=== PATIENT | male | born 1965 | race Caucasian/White ===

== ENCOUNTER → 2016-09-28 | Outpatient (CLI) | payer BC, OTHER ==
[~2016-09-28] MED LIST: ATOR10TA PO; ESCT10T; HYOMAX; HYOS0.1217; OMEP-10; [UNRECOGNIZED DRUG - CODE]
--- NOTE | 2016-09-28 14:36 | Diagnostic Imaging Report ---
PROCEDURE: MRI left upper extremity without contrast. TECHNIQUE: Multiplanar, multisequence non contrast-enhanced MRI of the left upper extremity was accomplished. INDICATION: Chronic left shoulder pain with popping. FINDINGS: The humeral head is in normal alignment with the glenoid fossa. Articulating surfaces are smooth. The articulating cartilage appears intact. Rotator cuff shows thickening of the distal supraspinatus tendon consistent with chronic tendinopathy. No evidence of full-thickness tears. The infraspinatus and subscapularis are intact with some thickening of the subscapularis tendon as well. The long head of biceps is in the bicipital groove and extends to the labral anchor. There is increased signal along the base of the anterior superior labrum which would be consistent with anterior labral tear. The AC joint shows marked hypertrophy. Osteophyte present both along the superior and undersurface. No loose bodies are identified. No joint effusion. The surrounding muscles appear normal with good bulk. IMPRESSION: 1. Thickening of the supraspinatus tendon and the subscapularis tendon consistent with chronic tendinopathy. No full-thickness tear demonstrated. 2. Probable tear along the anterior superior labrum though lack of intra-synovial contrast limits sensitivity. Clinical correlation. 3. Rather marked hypertrophic changes of the AC. joint. Dictated by: Dictated on workstation # [id number]
== END ==
LOC: RAD 12:57
PROVIDERS: ATTEND Orthopaedic Surgery
DX: R93.7 Abnormal findings on diagnostic imaging of other parts of musculoskeletal system (principal); M25.512 Pain in left shoulder; M47.812 Spondylosis without myelopathy or radiculopathy, cervical region
CPT/HCPCS: 73221

== ENCOUNTER 2016-11-19 15:33 | Outpatient (RCR) | payer OTHER | END 2016-12-03 16:38 | disposition home or self-care (01) | PROVIDERS: ATTEND Nurse Practitioner Family | DX: M75.42 Impingement syndrome of left shoulder (principal); M75.22 Bicipital tendinitis, left shoulder; M75.82 Other shoulder lesions, left shoulder; M50.30 Other cervical disc degeneration, unspecified cervical region ==

== ENCOUNTER 2017-07-31 17:01 | Emergency (ER) | payer OTHER ==
[~2017-07-31] VITALS: Ht 182.9 cm; Wt 72.6 kg
[2017-07-31] MEDS ORDERED: AMOX-358 PO (17:29)
[2017-07-31] MEDS ORDERED: HYDR-757 PO (17:29)
[2017-07-31] MEDS ORDERED: RX-HYDROCODONE/APAP 5/325 MG #4 TAB PK PO PRN (17:30)
[2017-07-31] MEDS ORDERED: AUGMENTIN 875 MG TAB (AMOXICILLIN/CLAVULANATE) PO SCH (17:30)
[2017-07-31] MEDS ORDERED: BUPIVACAINE 0.5% 30 ML (SENSORCAINE) VIAL INJ ONE (17:30)
--- NOTE | 2017-07-31 17:31 | ED EENT ---
History of Present Illness General Chief Complaint: Dental Problems/Pain Stated Complaint: DENTAL PAIN Nursing Triage Note: c/o R lower dental pain Source: patient Exam Limitations: no limitations History of Present Illness Date Seen by Provider: July 31, 2017 Time Seen by Provider: 17:26 Initial Comments To ER with right lower dental pain that began last night. He believes this is originating from a tooth that has a crown on it. No swelling. No fevers or chills. Timing/Duration: abrupt Severity: moderate Location: dental Associated Symptoms: denies symptoms Allergies and Home Medications Allergies Coded Allergies: Sulfa (Sulfonamide Antibiotics) (Verified Allergy, Unknown, 12/16/07) Home Medications Amoxicillin/Potassium Clav 1 Each Tablet, 1 EACH PO BID Prescribed by: GABRIELA GARCIA on 07/31/171728 Atorvastatin Calcium 10 Mg Tablet, 10 MG PO DAILY, (Reported) Hydrocodone/Acetaminophen 1 Each Tablet, 1 EACH PO Q4H PRN for PAIN-SEVERE Prescribed by: GABRIELA GARCIA on 07/31/171728 Patient Home Medication List Home Medication List Reviewed: Yes Review of Systems Constitutional: see HPI Eyes: No Symptoms Reported Ears: No Symptoms Reported Nose: no symptoms reported Mouth: see HPI, pain Throat: no symptoms reported Respiratory: no symptoms reported Cardiovascular: no symptoms reported Musculoskeletal: no symptoms reported Past Iyhybaj-Jdzrsa-Bejfvr Hx Patient Social History Alcohol Use: Occasionally Uses Recreational Drug Use: No Smoking Status: Never a Smoker Recent Foreign Travel: No Contact w/Someone Who Travel: No Recent Infectious Disease Expo: No Recent Hopitalizations: No Physical Abuse: No Sexual Abuse: No Past Medical History Surgeries: Yes (VASECTOMY) Respiratory: No Cardiac: No Neurological: No Reproductive Disorders: No Sexually Transmitted Disease: No Gastrointestinal: Yes Musculoskeletal: No Endocrine: No Psychosocial: No Nursing Suicide Risk Score: 0 Blood Disorders: No Physical Exam Vital Signs Vital Signs - First Documented 07/31/17 17:21 Temp 98.2 Pulse 68 Resp 18 B/P (MAP) 135/86 (102) Pulse Ox 100 General Appearance: WD/WN, no apparent distress Eyes: bilateral eye normal inspection, bilateral eye PERRL, bilateral eye EOMI Ears: bilateral ear auricle normal, bilateral ear canal normal Mouth/Throat: normal mouth inspection, pharynx normal, other (There is no palpable dental abscess) Neck: non-tender, full range of motion; No lymphadenopathy (R), No lymphadenopathy (L) Respiratory: no respiratory distress, no accessory muscle use Gastrointestinal: normal bowel sounds, non tender Neurologic/Psychiatric: alert, normal mood/affect, oriented x 3 Skin: normal color, warm/dry Procedures/Interventions Additional Procedures: Peripheral Nerve Block (Right inferior alveolar using 1 mL of 2% lidocaine with epinephrine and 1 mL of bupivacaine 0.5%) Progress/Results/Core Measures Results/Orders My Orders Orders - GABRIELA GARCIA APRN Bupivacaine 0.5% Injection (Sensorcaine (07/31/17 17:30) Rx-Hydrocodone/Apap 5-325 Mg (Rx-Vicodin (07/31/17 17:30) Amoxicillin/Clavulanate Tablet (Augmenti (07/31/17 17:30) Medications Given in ED Current Medications Medications Dose Ordered Sig/Brook Route Start Time Stop Time Status Last Admin Dose Admin Acetaminophen/ Hydrocodone Bitart 1 ea Q4H PRN PO 07/31/17 17:30 07/31/17 17:28 1 EA Bupivacaine HCl 2 ml ONCE ONCE INJ 07/31/17 17:30 07/31/17 17:31 DC 07/31/17 17:28 2 ML Vital Signs/I&O 07/31/17 17:21 Temp 98.2 Pulse 68 Resp 18 B/P (MAP) 135/86 (102) Pulse Ox 100 Blood Pressure Mean: 102 Departure Communication (Admissions) 1750-Pain is "110% better" Impression Primary Impression: Pain, dental Disposition: 01 HOME, SELF-CARE Condition: Stable Departure-Patient Inst. Decision time for Depature: 17:27 Referrals: MACI THORNTON MD (PCP/Family) Primary Care Physician Patient Instructions: Dental Pain (DC) Add. Discharge Instructions: 1. Pain medication and antibiotics as directed. Follow-up with your dentist as soon as possible. Return to ER for swelling fevers or other concerns. All discharge instructions reviewed with patient and/or family. Voiced understanding. Scripts Hydrocodone/Acetaminophen ([place] 5-325 Tablet) 1 Each Tablet 1 EACH PO Q4H PRN for PAIN-SEVERE, #10 TAB Prov: GABRIELA GARCIA APRN 07/31/17 Amoxicillin/Potassium Clav (Augmentin 875-125 Tablet) 1 Each Tablet 1 EACH PO BID, #14 TAB Prov: GABRIELA GARCIA APRN 07/31/17 GABRIELA GARCIA APRN July 31, 2017 17:31
[2017-07-31 17:52] VITALS: BP 135/86
== END 2017-07-31 17:52 | disposition home or self-care (01) ==
LOC: EDUNIT# 17:01 → ER 17:03
DX: K08.89 Other specified disorders of teeth and supporting structures (principal); Z90.79 Acquired absence of other genital organ(s); Z88.2 Allergy status to sulfonamides
CPT/HCPCS: 99283

== ENCOUNTER 2018-01-30 10:30 | Outpatient (CLI) | payer OTHER ==
[~2018-01-30] VITALS: Ht 182.9 cm; Wt 72.6 kg
[~2018-01-30 10:30] MED LIST changes: +AMOX-358 PO; +HYDR-4226 PO; +OMEP20TA7 PO
== END 2018-01-30 10:45 | disposition home or self-care (01) ==
LOC: PREOP 10:30
PROVIDERS: ATTEND Surgery
DX: Z01.818 Encounter for other preprocedural examination (principal)

== ENCOUNTER 2018-02-01 09:24 | Day surgery (SDC) | payer OTHER ==
[~2018-02-01] VITALS: Ht 182.9 cm; Wt 72.6 kg
[2018-02-01 09:35] VITALS: BP 110/77
[2018-02-01] MEDS ORDERED: MIDAZOLAM 2 MG/2 ML (VERSED) VIAL IVP ONE (09:45)
[2018-02-01] MEDS ORDERED: HURRICAINE EXT TUBE (BENZOCAINE) XX PRN (09:45)
[2018-02-01] MEDS ORDERED: LIDOCAINE JELLY 2% 6 ML SYRINGE MM PRN (09:45)
[2018-02-01] MEDS ORDERED: fentaNYL INJECTION 100 MCG/2 ML AMP IVP ONE (09:45)
[2018-02-01] MEDS: NS IV 500 ML 500 ML IV PRN ×3 (09:45→12:30)
--- OUTSIDE RECORDS SUMMARY | 2018-02-01 09:58 | XMS REPORT | Continuity of Care Document ---
Author Author [facility] Organization [facility] Address Unknown Phone Unavailable Allergies Active Description Code Type Severity Reaction Onset Reported/Identified Relationship to Patient Clinical Status Yes Sulfa (Sulfonamide Antibiotics) [id number] Drug Allergy Unknown N/A 2007 Medications There is no data. Problems Date Dx Coded Attending Type Code Diagnosis Diagnosed By 09/29/2016 NÉSTOR ZARATE DO, Ot M25.512 PAIN IN LEFT SHOULDER 09/29/2016 NÉSTOR ZARATE DO, Ot M47.812 SPONDYLOSIS W/O MYELOPATHY OR RADICULOPA 09/29/2016 NÉSTOR ZARATE DO Ot R93.7 ABNORMAL FINDINGS ON DIAGNOSTIC IMAGING 10/05/2016 ALONSO CASON APRN Ot M50.30 OTHER CERVICAL DISC DEGENERATION, UNSP C 10/05/2016 ALONSO CASON APRN Ot M75.22 BICIPITAL TENDINITIS, LEFT SHOULDER 10/05/2016 ALONSO CASON CIRCULATION DIRECTOR Ot M75.42 IMPINGEMENT SYNDROME OF LEFT SHOULDER 10/05/2016 ALONSO CASON CIRCULATION DIRECTOR Ot M75.82 OTHER SHOULDER LESIONS, LEFT SHOULDER 10/08/2016 ALONSO CASON CIRCULATION DIRECTOR Ot M50.30 OTHER CERVICAL DISC DEGENERATION, UNSP C 10/08/2016 ALONSO CASON CIRCULATION DIRECTOR Ot M75.22 BICIPITAL TENDINITIS, LEFT SHOULDER 10/08/2016 KAMLA ALONSO E CIRCULATION DIRECTOR Ot M75.42 IMPINGEMENT SYNDROME OF LEFT SHOULDER 10/08/2016 KAMLA, ALONSO E CIRCULATION DIRECTOR Ot M75.82 OTHER SHOULDER LESIONS, LEFT SHOULDER 10/08/2016 ALONSO CASON CIRCULATION DIRECTOR Ot M50.30 OTHER CERVICAL DISC DEGENERATION, UNSP C 10/08/2016 KAMLA ALONSO E CIRCULATION DIRECTOR Ot M75.22 BICIPITAL TENDINITIS, LEFT SHOULDER 10/08/2016 ALONSO CASON CIRCULATION DIRECTOR Ot M75.42 IMPINGEMENT SYNDROME OF LEFT SHOULDER 10/08/2016 DESHAUN CASONH Adan CIRCULATION DIRECTOR Ot M75.82 OTHER SHOULDER LESIONS, LEFT SHOULDER 10/20/2016 TESSA DO, NÉSTOR F Ot M25.512 PAIN IN LEFT SHOULDER 10/20/2016 TESSA DO, NÉSTOR F Ot M47.812 SPONDYLOSIS W/O MYELOPATHY OR RADICULOPA 10/20/2016 TESSA DO, NÉSTOR F Ot R93.7 ABNORMAL FINDINGS ON DIAGNOSTIC IMAGING 12/03/2016 KAMLA ALONSO E CIRCULATION DIRECTOR Ot M50.30 OTHER CERVICAL DISC DEGENERATION, UNSP C 12/03/2016 KAMLA ALONSO E CIRCULATION DIRECTOR Ot M75.22 BICIPITAL TENDINITIS, LEFT SHOULDER 12/03/2016 KAMLA, ALONSO E CIRCULATION DIRECTOR Ot M75.42 IMPINGEMENT SYNDROME OF LEFT SHOULDER 12/03/2016 KAMLA, ALONSO E CIRCULATION DIRECTOR Ot M75.82 OTHER SHOULDER LESIONS, LEFT SHOULDER 07/31/2017 TESSA DO, NÉSTOR F Ot M25.512 PAIN IN LEFT SHOULDER 07/31/2017 TESSA DO, NÉSTOR F Ot M47.812 SPONDYLOSIS W/O MYELOPATHY OR RADICULOPA 07/31/2017 TESSA DO, NÉSTOR F Ot R93.7 ABNORMAL FINDINGS ON DIAGNOSTIC IMAGING 07/31/2017 GABRIELA GARCIA CIRCULATION DIRECTOR Ot K08.89 OTHER SPECIFIED DISORDERS OF TEETH AND S 07/31/2017 GABRIELA GARCIA CIRCULATION DIRECTOR Ot Z88.2 ALLERGY STATUS TO SULFONAMIDES STATUS 07/31/2017 GABRIELA GARCIA CIRCULATION DIRECTOR Ot Z90.79 ACQUIRED ABSENCE OF OTHER GENITAL ORGAN( 08/02/2017 GABRIELA GARCIA CIRCULATION DIRECTOR Ot K08.89 OTHER SPECIFIED DISORDERS OF TEETH AND S 08/02/2017 GABRIELA GARCIA CIRCULATION DIRECTOR Ot Z88.2 ALLERGY STATUS TO SULFONAMIDES STATUS 08/02/2017 GABRIELA GARCIA CIRCULATION DIRECTOR Ot Z90.79 ACQUIRED ABSENCE OF OTHER GENITAL ORGAN( 01/05/2018 TESSA DO NÉSTOR F Ot M25.512 PAIN IN LEFT SHOULDER 01/05/2018 TESSA DO, NÉSTOR F Ot M47.812 SPONDYLOSIS W/O MYELOPATHY OR RADICULOPA 01/05/2018 TESSA DO, NÉSTOR F Ot R93.7 ABNORMAL FINDINGS ON DIAGNOSTIC IMAGING 01/09/2018 TESSA DO, NÉSTOR F Ot M25.512 PAIN IN LEFT SHOULDER 01/09/2018 TESSA DO, NÉSTOR F Ot M47.812 SPONDYLOSIS W/O MYELOPATHY OR RADICULOPA 01/09/2018 NÉSTOR ZARATE DO Ot R93.7 ABNORMAL FINDINGS ON DIAGNOSTIC IMAGING Procedures There is no data. Results There is no data. Encounters ACCT No. Visit Date/Time Discharge Status Pt. Type Provider Facility Loc./Unit Complaint [id number] 01/25/2018 05:37:00 01/25/2018 23:59:59 CLS Outpatient OSCAR CARLTON MD [facility] PREOP COLONOSCOPY [id number] 07/31/2017 17:03:00 07/31/2017 17:52:00 DIS Emergency GABRIELA GARCIA CIRCULATION DIRECTOR [facility] ER DENTAL PAIN [id number] 11/19/2016 15:33:00 12/03/2016 16:38:00 DIS Outpatient ALONSO CASON CIRCULATION DIRECTOR [facility] REHAB R SHLD IMP;BICEP TENDONITIS;LABRAL TEAR;DDD C SPIN [id number] 09/28/2016 12:57:00 09/28/2016 23:59:59 CLS Outpatient NÉSTOR ZARATE DO [facility] RAD LEFT SHOULDER PAIN, CERVICAL SPONDYLOSIS [id number] 12/05/2013 07:04:00 12/05/2013 11:55:00 DIS Outpatient [id number] 11/28/2013 07:20:00 11/28/2013 23:59:59 CLS Outpatient [id number] 02/01/2018 10:30:00 PEN Preadmit OSCAR CARLTON MD [facility] ENDO CHANGE IN BOWEL HABITS/REFLUX [id number] 09/29/2016 09:46:52 09/29/2016 23:59:59 CLS Outpatient
--- NOTE | 2018-02-01 11:06 | Conscious Sedation/ASA ---
Conscious Sedation Pre-Proced Time 10:00 ASA Score 2 For ASA 3 and 4: Consider anesthesia and medical clearance. Also, for patients with a history of failed moderate sedation consider anesthesia. Airway Lungs Heart ASA score ASA 1: a normal healthy patient ASA 2: a patient with a mild systemic disease (mid diabetes, controlled hypertension, obesity ASA 3: a patient with a severe systemic disease that limits activity (angina , COPD, prior Myocardial infarction) ASA 4: a patient with an incapacitating disease that is a constant threat to life (CHF, renal failure) ASA 5: a moribund patient not expected to survive 24 hrs. (ruptured aneurysm) ASA 6: a declared brain patient whose organs are being harvested. For emergent operations, add the letter E after the classification Mallampati Classification Grade 2 Sedation Plan Analgesia, Amnesia, Plan communicated to team members, Discussed options with patient/fam, Discussed risks with patient/fam The patient is an appropriate candidate to undergo the planned procedure, sedation, and anesthesia. The patient immediately re-assessed prior to indication. OSCAR CARLTON MD Feb 01, 2018 11:06 am
--- NOTE | 2018-02-01 11:06 | Progress Note-Pre Operative ---
Pre-Operative Progress Note H&P Reviewed The H&P was reviewed, patient examined and no changes noted. Date Seen by Provider: Feb 01, 2018 Time Seen by Provider: 10:00 Date H&P Reviewed: Feb 01, 2018 Time H&P Reviewed: 10:00 Pre-Operative Diagnosis: diarrhea OSCAR CARLTON MD Feb 01, 2018 11:06 am
[2018-02-01] MEDS ORDERED: ACETAMINOPHEN 325 MG TABLET PO PRN (11:15)
[2018-02-01] MEDS ORDERED: HYDROcodone/APAP 5 MG/325 MG (LORTAB) TAB PO PRN (11:15)
[2018-02-01] MEDS ORDERED: ONDANSETRON 4 MG/2 ML (SDV) Z0FRAN IV PRN (11:15)
[2018-02-01] MEDS ORDERED: morphine INJ 10 MG/ML 1ML (SYR OR VIAL) IV PRN (11:15)
[2018-02-01] MEDS ORDERED: fentaNYL INJECTION 100 MCG/2 ML AMP ONE ×2 (11:49)
[2018-02-01] MEDS ORDERED: LIDOCAINE JELLY 2% 6 ML SYRINGE ONE (11:49)
[2018-02-01] MEDS ORDERED: MIDAZOLAM 2 MG/2 ML (VERSED) VIAL ONE ×5 (11:49)
[2018-02-01] MEDS ORDERED: HURRICAINE EXT TUBE (BENZOCAINE) ONE (11:49)
[2018-02-01] MEDS ORDERED: NS IV 500 ML 500 ML ONE ×2 (11:51→12:25)
[2018-02-01 12:50] VITALS: BP 101/62
--- NOTE | 2018-02-01 12:54 | Progress Note-Post Operative ---
Post-Operative Progess Note Surgeon (s)/Architect In Training (s) Surgeon OSCAR CARLTON MD Architect In Training: none Pre-Operative Diagnosis diarrhea, GERD Post-Operative Diagnosis reflux esophagitis(2), mild gastitis, small HH(<1cm). chronic stage 2 ext and int hemorrhoids. Procedure & Operative Findings Date of Procedure 02/01/18 Procedure Performed/Findings EGD with bx. Colonscopy. Anesthesia Type CS Estimated Blood Loss Estimated blood loss (mL): minimal Specimens/Packing Specimens Removed GE jxn, antrum. OSCAR CARLTON MD Feb 01, 2018 12:54 pm
--- NOTE | 2018-02-01 12:55 | Discharge Inst-Surgical ---
D/C Lap Instructions-BIANKA Follow Up 10yrs or PRN Activity as tolerated High Fiber Diet 25g or more per day Avoid Alcohol, Caffeine, Spicy Clarinda and Acid foods. Drink 64 fluid oz or more of fluids per day. Symptoms to Report: Fever over 101 degree F, Nausea/Vomiting If any problems/questions: Contact your physician or go to Emergency Room OSCAR CARLTON MD Feb 01, 2018 12:55 pm
[2018-02-01 13:20] VITALS: BP 103/78
[2018-02-01 13:32] VITALS: BP 103/78
--- NOTE | 2018-02-01 23:23 | OPERATIVE REPORT ---
DATE OF SERVICE: 02/01/2018 ATTENDING PRIMARY CARE PHYSICIAN: Dr. Fady Og. PREOPERATIVE DIAGNOSES: 1. Gastroesophageal reflux disease. 2. Diarrhea. POSTOPERATIVE DIAGNOSES: 1. Reflux esophagitis, stage II. 2. Small hiatal hernia, less than 1 cm in size. 3. Mild gastritis. 4. Chronic stage II external and internal hemorrhoids. Remainder of the rectum and colon were normal. PROCEDURE: EGD with biopsy, colonoscopy. SURGEON: Oscar Carlton MD ANESTHESIA: Conscious sedation. ESTIMATED BLOOD LOSS: Minimal. FINDINGS: EGD, reflux esophagitis stage II. No ulcers or strictures. Small hiatal hernia, less than 1 cm in size, mild gastritis with no formal ulcerations, polyps or any neoplasms. No distal obstructions. Colonoscopy: Chronic stage II external and internal hemorrhoids, not actively edematous nor inflamed and no bleeding. Prostate gland was palpable and appeared normal. The remainder of the rectum and colon were normal. There were no polyps or any neoplasms identified. DISPOSITION: The patient tolerated the procedure well. INDICATIONS: The patient is a 52-year-old male known to us. We had initially seen him in 2013 for screening colonoscopy. At that time, he reports that he was doing well; however, has had diarrhea for the past several months of unknown etiology. He does not report any red blood per rectum nor any dark tarry stools. He also has had epigastric burning sensation that was initially mild; however, it has increased in the past several years. [facility] and was involved in the [place] and he would like further evaluation with EGD and colonoscopy. His only risk factors identifiable at this time is drinking approximately 5 beers a day as well as some milk products. He does not report any recent travel nor any new sources of water or food. DESCRIPTION OF PROCEDURE: The patient was brought to the endoscopy suite, laid in left lateral decubitus position. After adequate IV pain and sedative medication and conscious sedation anesthesia, the mouthpiece was applied. The endoscope was placed in the mouth, visualizing the pharynx and hypopharyngeal region. Vocal cords, epiglottis and vallecula identified and appeared to be normal. The endoscope was gently intubated at the esophageal opening and esophagus insufflated. The endoscope was then advanced to the first, second and third portion of the esophagus at the level of the GE junction. A reflux esophagitis stage II identified. There were no ulcers or strictures identified in this region. A biopsy was taken with forceps with visualization of good hemostasis. The endoscope was then advanced to the stomach and endoscope retroflexed, visualizing small hiatal hernia, less than 1 cm in size. There was mild severity gastritis. No formal ulcerations, polyps or any neoplasms. A biopsy was taken of the stomach antrum with forceps to rule out H. pylori. The endoscope was then advanced to the pylorus and the first and second portion of the duodenum, which appeared normal. The endoscope was then slowly withdrawn while taking a second look and suctioning of residual air with no additional findings. The patient tolerated this portion of procedure well. We will have him continue with medical management with a necessary lifestyle and diet accommodation including cessation or decreasing alcohol and caffeinated beverages as well as a trial of cessation of milk and milk products. We will also recommend a high fiber diet as well. Under the same anesthesia, we then proceeded with colonoscopy portion of procedure. A digital rectal examination was performed, which revealed chronic stage II external and internal hemorrhoids, not actively edematous, nor inflamed and no bleeding. Normal sphincter tone was felt and there were no palpable masses. Prostate gland was palpable and appeared normal. The endoscope was then intubated into the anus, rectum and gently insufflated. The endoscope was then advanced to the valves of Duncan in the rectum with no polyps or any neoplasms identified. The endoscope was then advanced to the sigmoid colon where no diverticulosis identified. The endoscope was then advanced to the remainder of the descending, transverse and ascending colon to the cecum. These segments were normal. There were no mucosal inflammatory changes throughout the colon as well as no polyps or any neoplasms. The endoscope was then slowly withdrawn while taking a second look and suctioning residual air with no additional findings. The patient tolerated the procedure well. We will recommend a high fiber diet with at least 30 grams of fiber per day to promote soft stools on a daily basis that is not a liquid diarrhea; however, no stools with no form. We will recommend at least 30 grams daily as well as at least 64 fluid ounces of water to start with; however, he may need more over time. Job ID: [id number] DocumentID: [id number] Dictated Date: 02/01/2018 12:47:47 Process Specialist Date: 02/01/2018 22:34:57 Dictated By: OSCAR CARLTON MD
== END 2018-02-01 13:32 | disposition home or self-care (01) ==
LOC: ENDO 09:24
PROVIDERS: ATTEND Surgery
DX: K21.0 Gastro-esophageal reflux disease with esophagitis (principal); K44.9 Diaphragmatic hernia without obstruction or gangrene; K29.70 Gastritis, unspecified, without bleeding; K64.1 Second degree hemorrhoids; R19.7 Diarrhea, unspecified; E78.00 Pure hypercholesterolemia, unspecified; Z88.2 Allergy status to sulfonamides; Z87.891 Personal history of nicotine dependence

== ENCOUNTER → 2018-02-17 | Outpatient (CLI) | payer OTHER ==
--- NOTE | 2018-02-17 11:02 | Diagnostic Imaging Report ---
PROCEDURE: MRI right joint lower extremity without contrast. TECHNIQUE: Multiplanar, multisequence non contrast-enhanced MRI of the right lower extremity was accomplished. INDICATION: Injury. Ankle pain. COMPARISON: There are no previous exams available for comparison. FINDINGS: There is no abnormal signal arising from the osseous structures to suggest bone edema or a fracture. The talar dome is smooth but there is a minute 2 x 2 mm area of increased signal within the subarticular region of the medial aspect of the talar dome on the coronal proton dense fat-saturated series (image #19 of 33). This finding may be related to an osteochondral injury. There is no clear evidence for osteochondritis desiccation however. There is slight alteration of the signal within the anterior talofibular ligament. This appearance suggests that the ligament may be partially torn. For the most part however the ATF seems to be intact. Furthermore on the sagittal STIR series, there does appear to be a split tear of the peroneal brevis tendon extending from just superior to the level of the malleolus to the inferior margin of the lateral malleolus. At this point, the peroneal brevis tendon becomes indistinct and may be nearly completely if not completely torn. There is also slight buckling of the peroneal longus tendon in this region and there may be a minute tear of the peroneus longus tendon as well. There is also fluid within the tendon sheath indicating tenosynovitis. There is no other evidence for a tear of the other major ligaments or tendons. However, there is fluid in the tendon sheaths of the flexor hallucis longus tendon and the flexor digitorum longus tendons. The presence of the fluid does suggest there may be an element of tenosynovitis present. There is no significant ankle joint effusion. IMPRESSION: 1. There is no evidence for an acute bony abnormality. 2. The small defect in the subarticular region of the medial aspect of the talar dome may be related to an osteochondral injury. This does not have the typical appearance for osteochondritis dissecans. 3. The altered signal within the anterior talofibular ligament does suggest a partial tear. There is also a split tear of the peroneal brevis tendon and the distal portion of this tendon may be nearly completely if not completely torn as well. There is also suspicion of a small partial tear of the peroneus longus tendon. The other major ligaments and tendons are intact. 4. The fluid in the tendon sheaths, the peroneal tendons, the flexor hallucis longus and flexor digitorum longus may be related to tenosynovitis. Dictated by: Dictated on workstation # [id number]
== END ==
LOC: RAD 08:43
PROVIDERS: ATTEND Podiatrist
DX: S86.311A Strain of muscle(s) and tendon(s) of peroneal muscle group at lower leg level, right leg, initial encounter (principal)
CPT/HCPCS: 73721

== ENCOUNTER 2018-03-20 06:01 | Outpatient (CLI) | payer OTHER ==
[~2018-03-20] VITALS: Ht 182.9 cm; Wt 72.6 kg
== END 2018-03-20 12:19 | disposition home or self-care (01) ==
LOC: PREOP 06:01
PROVIDERS: ATTEND Podiatrist
DX: Z01.818 Encounter for other preprocedural examination (principal)

== ENCOUNTER 2018-03-24 06:03 | Day surgery (SDC) | payer OTHER ==
[~2018-03-24] VITALS: Ht 182.9 cm; Wt 76.0 kg
[2018-03-24 06:05] VITALS: BP 106/74
[2018-03-24] MEDS: LACTATED RINGERS 1,000 ML IV PRN ×3 (06:15→10:36)
[2018-03-24] MEDS ORDERED: ceFAZolin 2 GM IV Premixed 50 ML IV ONE (06:45)
[2018-03-24] MEDS ORDERED: fentaNYL INJECTION 100 MCG/2 ML AMP ONE (06:53)
[2018-03-24] MEDS ORDERED: MIDAZOLAM 2 MG/2 ML (VERSED) VIAL ONE (06:53)
[2018-03-24] MEDS ORDERED: BUPIVACAINE 0.5% 30 ML (SENSORCAINE) VIAL ONE ×2 (07:00→07:03)
[2018-03-24] MEDS ORDERED: SEVOFLURANE (ULTANE) 15 ML INHAL SOLN ONE (08:36)
[2018-03-24] MEDS ORDERED: DEXAMETHASONE 10 MG/ML (DECADRON) 1 ML VIAL ONE (08:36)
[2018-03-24] MEDS ORDERED: proPOfol 200 MG/20 ML (DIPRIVAN) VIAL IV ONE (08:36)
[2018-03-24] MEDS ORDERED: PHENYLEPHRINE 100 MCG/ML 10 ML (ANESTHESIA) SYR ONE (08:36)
[2018-03-24] MEDS ORDERED: ONDANSETRON 4 MG/2 ML (SDV) Z0FRAN ONE ×2 (08:36→10:32)
[2018-03-24] MEDS ORDERED: LIDOCAINE PF 2% 5 ML (XYLOCAINE) VIAL ONE (08:36)
--- NOTE | 2018-03-24 09:56 | Discharge Inst-Surgical ---
Discharge Inst-Surgical Consults/Follow Up Patient Instructions: REMAIN NONWEIGHT BEARING TO THE RIGHT LOWER EXTREMITY. KEEP DRESSING CLEAN, DRY, AND INTACT. DO NOT REMOVE DRESSING, DO NOT GET DRESSING WET OR SOILDED. ICE AND ELEVATE RIGHT LOWER EXTREMITY AT ALL TIMES. FOLLOW UP WITH DR DU IN 2 WEEKS. CALL [phone] FOR APPOINTMENT. MARKELL DU DPM Mar 24, 2018 09:56
[2018-03-24] MEDS ORDERED: OXYC1TAB87 PO (10:03)
[2018-03-24] MEDS ORDERED: morphine INJ 10 MG/ML 1ML (SYR OR VIAL) ONE (10:29)
[2018-03-24] MEDS ORDERED: HYDROmorphone 2 MG/ML VIAL (DILAUDID) ONE (10:31)
[2018-03-24 11:00] VITALS: BP 106/74
[2018-03-24] MEDS ORDERED: ONDANSETRON 4 MG/2 ML (SDV) Z0FRAN IVP PRN (11:00)
[2018-03-24] MEDS ORDERED: morphine INJ 10 MG/ML 1ML (SYR OR VIAL) IVP ONE (11:00)
[2018-03-24 11:30] VITALS: BP 123/82
[2018-03-24 12:00] VITALS: BP 122/77
--- NOTE | 2018-03-24 12:02 | Physical Therapy Progress Note ---
Therapy Progress Note PT in to assess patient. Discussed with patient and spouse equipment and use. Both state, crutches and knee scooter established and patient has utilized both prior to this surgery. They decline PT intervention. No skilled therapy indicated. 1 visit JAQUELIN MATHEW PT Mar 24, 2018 12:02
--- NOTE | 2018-03-24 13:48 | Anesthesia-General Post-Op ---
General Patient Condition Mental Status/LOC: Same as Preop Cardiovascular: Satisfactory Nausea/Vomiting: Absent Respiratory: Satisfactory Pain: Controlled Complications: Absent Post Op Complications Complications None Follow Up Care/Instructions Patient Instructions None needed. Anesthesia/Patient Condition Patient Condition Patient is doing well, no complaints, stable vital signs, no apparent adverse anesthesia problems. No complications reported per nursing. REBECCA MANLEY CRNA Mar 24, 2018 13:48
--- NOTE | 2018-03-24 13:50 | Anesthesia-Regional Post-Op ---
Regional Patient Condition Mental Status: Alert, Oriented x3 Circulation: Same as Pre-Op Headache: Absent Sensation: Full Recovery Motor Block: Absent Post Op Complications Complications None Follow Up Care/Instructions Patient Instructions None needed. Anesthesia/Patient Condition Patient is doing well, no complaints, stable vital signs, no apparent adverse anesthesia problems. No complications reported per nursing. REBECCA MANLEY CRNA Mar 24, 2018 13:50
--- NOTE | 2018-04-11 11:23 | OPERATIVE REPORT ---
DATE OF SERVICE: 03/24/2018 SURGEON: Truman Du DPM. SHANK SANDER: None. PREOPERATIVE DIAGNOSES: 1. Peroneal tendon tear of the right lower extremity, peroneus brevis tendon tear of the right lower extremity. 2. Lateral ankle instability, right lower extremity. POSTOPERATIVE DIAGNOSES: 1. Peroneal tendon tear of the right lower extremity, peroneus brevis tendon tear of the right lower extremity. 2. Lateral ankle instability, right lower extremity. PROCEDURES PERFORMED: 1. Repair of peroneal tendon tear of right lower extremity. 2. Modified Brostrom ankle stabilization, right lower extremity. ANESTHESIA: General anesthesia. HEMOSTASIS: Pneumatic thigh tourniquet 300 mmHg. ESTIMATED BLOOD LOSS: Minimal. MATERIALS USED: Arthrex anchors and internal brace, Arthrex PushLock, 3-0 Vicryl, and 3-0 nylon. INTRAOPERATIVE INJECTABLES: None. COMPLICATIONS: None. INDICATIONS: The patient is a 53-year-old male with a history of a peroneal tendon tear to his right lower extremity as well as lateral ankle instability of the right lower extremity. He has exhausted all conservative measures at this time requiring surgical intervention. He signed consent prior to being taken back to the OR. DESCRIPTION OF PROCEDURE: Under mild sedation, the patient was brought in the OR and placed on the operating table in supine position. Upon administration of general anesthesia, he was transferred into the left lateral decubitus position. The right lower extremity was then scrubbed, prepped and draped in aseptic manner and proper timeout was performed. Right lower extremity was identified as surgical site. Next, approximately an 8 cm incision was made extending from the area of the peroneal tendons just posterior to the posterior border of the fibula and above the level of the peroneal retinaculum extending anteriorly and distally toward the anterior process of the calcaneus. The incision was deepened down to subcutaneous tissues with care being taken to avoid all major neurovascular structures. All bleeders were cauterized and ligated as necessary. The tendon sheath of the peroneus brevis tendons as well as the peroneal retinaculum was released approximately 3 mm off the posterior fibula. There was extensive synovitis noted within the peroneal tendons. The peroneal tendons were then further evaluated. The peroneus longus tendon appeared to be of good healthy color in nature; however, the peroneus brevis tendon had an approximately 3 cm split thickness tear that extended across the area of the retrofibular groove and extending distally past the inferior border of the fibula. The peroneus brevis tendon was then debrided and the area of the split thickness tear was excised. The tendon was then reapproximated upon itself and then tubularized using 4-0 nylon. There was an adequate repair of the peroneus brevis tendon. The tendon was good healthy color in nature once all the degenerative tendon was excised and it was then tubularized back to a rounded anatomical nature seen. All the synovitis was resected and excised from the peroneal tendon sheath. There was also a low lying muscle belly of the peroneus brevis tendon that was also excised and passed from the surgical field. The wound was then flushed with copious amounts of sterile saline. The peroneal retinaculum was repaired in a [id number] type manner using #2 FiberWire. The peroneal tendon sheath was then repaired using 3-0 Vicryl. Attention was then directed to the anterior talofibular ligament and capsular tissue. The ATFL was released off the attachment to the distal fibula as well as with the capsular tissue. This was also released off the distal fibula and retracted. The ankle joint was evaluated. There was no significant chondral defects noted within the ankle. There was mild synovitis that was also seen within the anterior aspect of the ankle that was dissected out. Next, the distal aspect of the fibula was prepared for reattachment of the ligamentous and capsular tissues using a rongeur to decorticate the distal anterior aspect of the fibula. Two suture tacks were then placed into the distal fibula as well as a drill hole from the internal brace was placed between the suture tacks for later placement of internal brace. The 3.5 anchor for the internal brace was then inserted into the talar body just distal to the articular surface of the talus at a 45-degree angle from the talar neck, back into the talar body. As his brace was inserted, it was then tested and there was adequate fixation into the talar body. The suture tacks were then passed through the anterior talofibular ligament and capsular tissue. The ankle was then held in an overcorrected position with dorsiflexion, abduction and eversion. The sutures were then tied back on to the distal fibular and adequate repair was noted. The internal brace was then fixated into the distal fibula using the 4.25 SwiveLock with the ankle held in neutral position with care taken not to over tighten the internal brace. There was an adequate repair. The ankle was put through range of motion, anterior drawer and there was a good stable fixation was noted. The sutures were then passed through the extensor retinaculum. The extensor retinaculum was incorporated into the repair and fixated in the distal tibia using a PushLock. The wounds were then flushed with copious amounts of sterile saline. Deep tissues were approximated and closed with 3-0 Vicryl, subcutaneous tissues approximately with 3-0 Vicryl and the skin was approximated with the wound edges well everted using 3-0 nylon. Foot was then dressed with a dry sterile dressing consisting of 4 x 4's, cast padding and Jose wrap followed by posterior splint and Jose wrap. The patient tolerated the procedure and anesthesia well. He was transferred from OR to recovery with vital signs stable and neurovascular status intact to the right lower extremity. Job ID: [id number] DocumentID: [id number] Dictated Date: 04/11/2018 08:16:53 Coal Pulverizer Operator Date: 04/11/2018 11:22:36 Dictated By: TRUMAN DU DPM
== END 2018-03-24 12:24 | disposition home or self-care (01) ==
LOC: SDC 06:03
PROVIDERS: ATTEND Podiatrist
DX: M24.271 Disorder of ligament, right ankle (principal); K21.9 Gastro-esophageal reflux disease without esophagitis
CPT/HCPCS: 87081

== ENCOUNTER → 2018-05-12 | Outpatient (CLI) | payer OTHER ==
[~2018-05-12] MED LIST changes: +OXYC1TAB87 PO
[2018-05-12 08:45] LABS: BASOPHILS % (AUTO) 1 % (0-10); EOSINOPHILS # (AUTO) 0.2 10^3/uL (0.0-0.3); EOSINOPHILS % (AUTO) 5 % (0-10); HEMATOCRIT 40 % (40-54); HEMOGLOBIN 13.4 G/DL (13.3-17.7); LYMPHOCYTES # (AUTO) 1.6 X 10^3 (1.0-4.0); LYMPHOCYTES % (AUTO) 33 % (12-44); MEAN CORPUSCULAR HEMOGLOBIN 30 PG (25-34); MEAN CORPUSCULAR HGB CONC 34 G/DL (32-36); MEAN CORPUSCULAR VOLUME 89 FL (80-99); MONOCYTES # (AUTO) 0.6 X 10^3 (0.0-1.0); MONOCYTES % (AUTO) 12 % (0-12); NEUTROPHILS # (AUTO) 2.4 X 10^3 (1.8-7.8); NEUTROPHILS % (AUTO) 51 % (42-75); PLATELET COUNT 273 10^3/uL (130-400); RED CELL DISTRIBUTION WIDTH 12.6 % (10.0-14.5); WHITE BLOOD COUNT 4.8 10^3/uL (4.3-11.0)
[2018-05-12 09:05] LABS: ALANINE AMINOTRANSFERASE 16 U/L (0-55); ALBUMIN 4.2 GM/DL (3.2-4.5); ALKALINE PHOSPHATASE 89 U/L (40-136); BILIRUBIN,TOTAL 0.5 MG/DL (0.1-1.0); BUN/CREATININE RATIO 19; CALCIUM 9.7 MG/DL (8.5-10.1); CARBON DIOXIDE 23 MMOL/L (21-32); CHLORIDE 104 MMOL/L (98-107); CHOLESTEROL 214 MG/DL (< 200); CREATININE SERUM 0.88 MG/DL (0.60-1.30); GFR ESTIMATED > 60; GLUCOSE 99 MG/DL (70-105); HDL CHOLESTEROL 36 MG/DL (40-60); SODIUM 138 MMOL/L (135-145); TOTAL PROTEIN 6.7 GM/DL (6.4-8.2); TRIGLYCERIDES 228 MG/DL (<150); URIC ACID 6.6 MG/DL (2.6-7.2); VLDL CHOLESTEROL 46 MG/DL (5-40)
== END ==
LOC: LAB 08:29
PROVIDERS: ATTEND Family Medicine
DX: Z00.00 Encounter for general adult medical examination without abnormal findings (principal); R53.83 Other fatigue; E78.5 Hyperlipidemia, unspecified; Z13.1 Encounter for screening for diabetes mellitus
CPT/HCPCS: 36415; 80053; 80061; 83036; 84443; 84550; 85025

== ENCOUNTER 2018-06-19 09:49 | Outpatient (RCR) | payer OTHER | END 2018-06-19 10:19 | disposition home or self-care (01) | PROVIDERS: ATTEND Podiatrist | DX: Z47.89 Encounter for other orthopedic aftercare (principal); M25.571 Pain in right ankle and joints of right foot ==

== ENCOUNTER → 2018-07-06 | Outpatient (CLI) | payer OTHER ==
[2018-07-06 10:12] LABS: BILIRUBIN,URINE NEGATIVE (NEGATIVE); CLARITY,URINE CLEAR; COLOR,URINE GREEN; GLUCOSE, URINE (UA) NEGATIVE (NEGATIVE); KETONES,URINE NEGATIVE (NEGATIVE); LEUKOCYTE ESTERASE ,URINE 1+ (NEGATIVE); NITRITE,URINE NEGATIVE (NEGATIVE); PH,URINE 6.5 (5-9); PROTEIN,URINE 2+ (NEGATIVE); UROBILINOGEN,URINE NORMAL (NORMAL)
[2018-07-06 10:26] LABS: BACTERIA,URINE NEGATIVE /HPF; RBC,URINE RARE /HPF; SQUAMOUS EPITHELIAL CELL,UR RARE /HPF; WBC,URINE RARE /HPF
== END ==
LOC: LAB 09:33
PROVIDERS: ATTEND Family Medicine
DX: R30.0 Dysuria (principal); R35.0 Frequency of micturition
CPT/HCPCS: 81000

== ENCOUNTER → 2018-11-28 | Outpatient (CLI) | payer OTHER ==
--- NOTE | 2018-11-28 13:38 | Diagnostic Imaging Report ---
PROCEDURE: MRI left joint lower extremity without contrast. TECHNIQUE: Multiplanar, multisequence non contrast-enhanced MRI of the left lower extremity was accomplished. INDICATION: Six months' history of knee pain. COMPARISON: No priors. FINDINGS: There is degeneration and tears of the posterior horn of the medial meniscus. The lateral meniscus reveals some intrasubstance degeneration but no murali tear. The anterior and posterior cruciate ligaments are intact. The patellar and quadriceps tendons are intact. There is some thickening and heterogeneous signal intensity involving the femoral portion of the medial collateral ligament, likely reflective of its strain. There is some adjacent edema superficial to that structure. No murali transection. The components of the lateral collateral complex crossing the knee appeared intact. There is small Galarza's cyst in the popliteal fossa. The patellar and trochlear articular cartilage was well maintained. Medial and lateral tibiofemoral hyaline articular cartilage is well maintained. IMPRESSION: Medial meniscal tears of the posterior horn, probable strain to the medial collateral ligament. Intact cruciate ligaments and no bone contusion or fracture. Dictated by: Dictated on workstation # [id number]
== END ==
LOC: RAD 08:22
PROVIDERS: ATTEND Orthopaedic Surgery
DX: S83.242A Other tear of medial meniscus, current injury, left knee, initial encounter (principal); X58.XXXA Exposure to other specified factors, initial encounter
CPT/HCPCS: 73721

== ENCOUNTER 2018-12-14 05:33 | Outpatient (CLI) | payer OTHER ==
[~2018-12-14] VITALS: Ht 182.9 cm; Wt 75.0 kg
== END 2018-12-14 14:18 | disposition home or self-care (01) ==
LOC: PREOP 05:33
PROVIDERS: ATTEND Orthopaedic Surgery
DX: Z01.818 Encounter for other preprocedural examination (principal)

== ENCOUNTER 2018-12-19 09:56 | Day surgery (SDC) | payer OTHER ==
[2018-12-19] VITALS (10 sets, daily range): BP systolic 100–112; BP diastolic 64–81
[~2018-12-19] VITALS: Ht 182.9 cm; Wt 75.0 kg
[2018-12-19] MEDS ORDERED: DEXAMETHASONE 10 MG/ML (DECADRON) 1 ML VIAL ONE (10:19)
[2018-12-19] MEDS ORDERED: ONDANSETRON 4 MG/2 ML (SDV) Z0FRAN ONE (10:19)
[2018-12-19] MEDS ORDERED: LIDOCAINE PF 2% 5 ML (XYLOCAINE) VIAL ONE (10:19)
[2018-12-19] MEDS ORDERED: SEVOFLURANE (ULTANE) 15 ML INHAL SOLN ONE (10:19)
[2018-12-19] MEDS ORDERED: fentaNYL INJECTION 100 MCG/2 ML AMP ONE (10:19)
[2018-12-19] MEDS ORDERED: proPOfol 200 MG/20 ML (DIPRIVAN) VIAL IV ONE (10:19)
[2018-12-19] MEDS ORDERED: MIDAZOLAM 2 MG/2 ML (VERSED) VIAL ONE (10:20)
[2018-12-19] MEDS ORDERED: LIDOCAINE 1% INJ 20 ML 20 ML VIAL ONE (10:26)
[2018-12-19] MEDS ORDERED: BUP/EPI 0.5% 1:200,000 (SENSORCAINE) 30 ML VIAL ONE (10:26)
[2018-12-19] MEDS ORDERED: NEO/POLY/BAC (NEOSPORIN) OINT 15 GM TUBE ONE (10:26)
[2018-12-19] MEDS ORDERED: ceFAZolin INJECTION 1,000 MG VIAL IV ONE (10:30)
[2018-12-19] MEDS ORDERED: ceFAZolin 2 GM IV Premixed 50 ML ONE (10:51)
[2018-12-19] MEDS ORDERED: LIDOCAINE/EPI 1%-1:100,000 (XYLOCAINE) 20ML ONE (10:54)
[2018-12-19] MEDS: LACTATED RINGERS 1,000 ML IV PRN ×2 (10:57→11:40)
[2018-12-19] MEDS ORDERED: ceFAZolin 2 GM/50 ML PRE-MIX IV ONE (11:00)
[2018-12-19] MEDS ORDERED: FAMOTIDINE 20MG/2ML IV (PEPCID) IV ONE (11:00)
--- NOTE | 2018-12-19 11:00 | Progress Note-Pre Operative ---
Pre-Operative Progress Note H&P Reviewed The H&P was reviewed, patient examined and no changes noted. Date Seen by Provider: Dec 19, 2018 Time Seen by Provider: 11:00 Date H&P Reviewed: Dec 19, 2018 Time H&P Reviewed: 11:00 Pre-Operative Diagnosis: Torn Medial Meniscus Left Knee NÉSTOR ZARATE DO Dec 19, 2018 11:00
[2018-12-19] MEDS ORDERED: HYDR-4227 PO (11:13)
--- NOTE | 2018-12-19 11:54 | Progress Note-Post Operative ---
Post-Operative Progess Note Surgeon (s)/Side Splitter (s) Surgeon NÉSTOR ZARATE DO Side Splitter: Dewayne Aranda OLD TESTAMENT PROFESSORRoger Pre-Operative Diagnosis Torn Medial Meniscus Left Knee Post-Operative Diagnosis Torn Medial Meniscus Left knee with chondromalacia Procedure & Operative Findings Date of Procedure 12/19/18 Procedure Performed/Findings Arthroscopy Left Knee with Partial Medial Meniscectomy with chondroplasty Anesthesia Type general Estimated Blood Loss Estimated blood loss (mL): min Specimens/Packing Specimens Removed none NÉSTOR ZARATE DO Dec 19, 2018 11:54
[2018-12-19] MEDS ORDERED: HYDROcodone/APAP 7.5 MG/325 MG (LORTAB, LORCET PLUS) TABLET PO ONE (13:15)
--- NOTE | 2018-12-19 14:35 | Anesthesia-General Post-Op ---
General Patient Condition Mental Status/LOC: Same as Preop Cardiovascular: Satisfactory Nausea/Vomiting: Absent Respiratory: Satisfactory Pain: Controlled Complications: Absent Post Op Complications Complications None Follow Up Care/Instructions Patient Instructions None needed. Anesthesia/Patient Condition Patient Condition Patient is doing well, no complaints, stable vital signs, no apparent adverse anesthesia problems. No complications reported per nursing. MIKKI CARPENTER CRNA Dec 19, 2018 14:34
--- NOTE | 2018-12-19 16:46 | OPERATIVE REPORT ---
DATE OF SERVICE: 12/19/2018 PREOPERATIVE DIAGNOSIS: Torn medial meniscus, left knee. POSTOPERATIVE DIAGNOSIS: Torn medial meniscus, left knee with chondromalacia. PROCEDURES: Arthroscopy, left knee with partial medial meniscectomy and chondroplasty. SURGEON: DO FLAIVO Bartlett ASSISTANT: Dewayne Aranda APRN ANESTHESIA: General. COMPLICATIONS: None. ESTIMATED BLOOD LOSS: Minimal. INDICATIONS AND FINDINGS: The patient is a 53-year-old male seen with chief complaint of progressive pain, catching and intermittent effusion within the left knee. An MRI evaluation confirmed a posterior horn tear of the medial meniscus. 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 The patient was taken to surgery where an arthroscopy, left knee demonstrated tear to the white-white and red-white zone of the posterior horn of the medial meniscus. There was grade III chondromalacia medial femoral condyle and medial tibial plateau was smooth. The anterior cruciate ligament was noted to be intact. Lateral femoral condyle was smooth. The lateral meniscus demonstrated no abnormalities. The lateral tibial plateau demonstrated grade I softening and superficial grade 2 fissuring. The patient had grade III chondromalacia of the patella articular surface. The trochlea demonstrated no abnormalities. A chondroplasty of the patellofemoral joint was performed. A chondroplasty medial femoral condyle was completed and partial medial meniscectomy was completed. PROCEDURE IN DETAIL: The patient was taken to the operating room and placed supine upon the operating table and general inhalation anesthetic was administered. A well-padded pneumatic tourniquet was placed about the left thigh. This was not used throughout the procedure. The left leg was placed in the leg rogers. A ChloraPrep and sterile drape of the left lower extremity was performed. An inflow cannula was placed through a superior medial position. The arthroscope was placed through an anterolateral portal. An 18 gauge needle was used to establish position for an anteromedial arthroscopic portal site. The posterior horn tear was identified and probed. A full radius synovial shaver as well as straight biting basket forceps and basket forceps used and morselized the tear back to stable meniscal rim. This was confirmed with probing. Fibrillation tissue on the medial femoral condyle was debrided. This involved approximately 25% of the articular cartilage thickness of the medial femoral condyle. The ACL was noted to be intact. Lateral meniscus was noted to be intact. Probing the lateral tibial plateau demonstrated the fissuring and the softening noted. Fibrillation tissue from the medial and lateral facet of the patella as well as the central ridge were debrided back to stable articular cartilage with the full radius synovial shaver. At the completion of the procedure, the knee was additionally irrigated with normal saline solution. The knee was drained, 20 mL of 1% lidocaine was instilled within the knee and Adaptic Neosporin bulky dressing was placed about the left knee. The patient was awakened and was transported to postop recovery with anesthesia personnel present in stable condition. Intraoperative photographs of the procedure obtained for the record and provided to the patient. Job ID: [id number] DocumentID: [id number] Dictated Date: 12/19/2018 11:57:58 Surgical Sales Representative Date: 12/19/2018 16:45:38 Dictated By: NÉSTOR ZARATE DO
== END 2018-12-19 13:50 | disposition home or self-care (01) ==
LOC: SDC 09:56
PROVIDERS: ATTEND Orthopaedic Surgery
DX: S83.242A Other tear of medial meniscus, current injury, left knee, initial encounter (principal); M25.562 Pain in left knee; M94.262 Chondromalacia, left knee; M25.462 Effusion, left knee
CPT/HCPCS: 87081

== ENCOUNTER → 2019-03-02 | Outpatient (CLI) | payer OTHER ==
[~2019-03-02] MED LIST changes: +HYDR-4227 PO
== END ==
LOC: LAB 07:54
PROVIDERS: ATTEND Specialist
DX: N41.9 Inflammatory disease of prostate, unspecified (principal)
CPT/HCPCS: 36415; 84153